=== PATIENT | male | born 1965 | race Hispanic/Latino ===

== ENCOUNTER 2018-05-11 15:48 | Emergency (ER) | payer SELFPAY ==
[~2018-05-11 15:48] MED LIST: Adacel (T-DAP) 0.5 ML VIAL ONE
[2018-05-11] MEDS ORDERED: TETANUS AND DIPHTHERIA TOX/PF 0.5 ML DISP.SYRIN ONE (15:55)
[2018-05-11] MEDS ORDERED: Lidocaine 1% 20 ML MDV ONE (15:55)
[2018-05-11] MEDS ORDERED: Bacitracin Zinc 1 Packet ONE (16:06)
== END 2018-05-11 16:40 | disposition home or self-care (01) ==
LOC: MADERS 15:48
DX: S61.213A Laceration without foreign body of left middle finger without damage to nail, initial encounter (principal); W45.8XXA Other foreign body or object entering through skin, initial encounter
CPT/HCPCS: 12001; 90471; 90715; J2001

== ENCOUNTER 2018-05-14 07:48 | Emergency (ER) | payer SELFPAY | END 2018-05-14 08:00 | disposition home or self-care (01) | LOC: MADERS 07:48 | DX: S61.213D Laceration without foreign body of left middle finger without damage to nail, subsequent encounter (principal) | CPT/HCPCS: 99282 ==

== ENCOUNTER 2018-05-27 15:07 | Emergency (ER) | payer SELFPAY ==
[2018-05-27] MEDS ORDERED: Triple Antibiotic Oint 1 GM Packet ONE (15:39)
== END 2018-05-27 15:46 | disposition home or self-care (01) ==
LOC: MADERS 15:07
DX: S61.211D Laceration without foreign body of left index finger without damage to nail, subsequent encounter (principal)

== ENCOUNTER 2019-11-20 06:03 | Emergency (ER) | payer SELFPAY ==
[2019-11-20] MEDS ORDERED: Ondansetron PF 4 MG/2 ML Vial ONE (06:44)
[2019-11-20] MEDS ORDERED: Morphine 4 MG/ML VIAL ONE ×2 (06:44→08:17)
[2019-11-20 06:59] LABS: #Basophils 0.1 thou/uL (0.0-0.2); #Eosinphils 0.1 thou/uL (0.0-0.7); #Monocytes 1.2 thou/uL (0.11-0.59); #Neutrophils 13.9 thou/uL (1.40-6.50); %Basophils 0.4 % (0.0-1.0); %Eosinophils 0.3 % (0.0-10.0); %Lymphocytes 11.6 % (21.0-51.0); %Neutrophils 80.6 % (42.0-75.0); Hemoglobin 15.6 g/dL (14.0-18.0); Mean Corpuscular HGB CONC 34.3 g/dL (32.0-36.0); Mean Corpuscular Hemoglobin 31.4 pg (27.0-31.0); Mean Corpuscular Volume 91.7 fL (78.0-98.0); Mean Platelet Volume 8.8 fL (7.4-10.4); Platelet Count 191 thou/uL (130-400); RBC Distribution Width 10.8 % (11.5-14.5); Red Blood Cell (RBC) Count 4.97 mill/uL (4.70-6.10); White Blood Cell (WBC) Count 17.2 thou/uL (4.8-10.8)
[2019-11-20 07:13] LABS: ALT (SGPT) 14 U/L (8-55); AST (SGOT) 20 U/L (5-34); Albumin 4.4 g/dL (3.5-5.0); Alkaline Phosphatase 79 U/L (40-110); Anion Gap 18 mmol/L (10-20); BUN (Urea Nitrogen) 7 mg/dL (8.4-25.7); Bilirubin, Total 1.5 mg/dL (0.2-1.2); Calc. Creatinine Clearance 0 mL/min (70-130); Calcium 9.2 mg/dL (7.8-10.44); Carbon Dioxide 22 mmol/L (22-29); Chloride 98 mmol/L (98-107); Estimated GFR-MDRD Greater than 90; Globulin 2.8 g/dL (2.4-3.5); Glucose 140 mg/dL (70-105); Lipase 11 U/L (8-78); Potassium 3.6 mmol/L (3.5-5.1); Protein, Total 7.2 g/dL (6.0-8.3); Sodium 134 mmol/L (136-145)
[2019-11-20] MEDS ORDERED: Sodium Chloride 0.9% 1,000 ML BAG ONE (07:47)
--- NOTE | 2019-11-20 08:04 | CT ---
CT ABDOMEN AND PELVIS: Date: 11/20/2019 COMPARISON: None. HISTORY: Abdominal pain. TECHNIQUE: Axial CT imaging obtained at 5 mm intervals from lung bases through pubic symphysis with IV contrast. Coronal and sagittal reformatted imaging obtained. FINDINGS: The imaged lung bases are unremarkable. No free intraperitoneal air. The liver, spleen, gallbladder, pancreas, and adrenal glands are grossly unremarkable. Kidneys are un remarkable. There is no evidence for bowel obstruction. There is right lower quadrant inflammatory change at the base of the cecum and adjacent to the append ix. The appendix is thick-walled and fluid-filled. There is an appendicolith present on axial image 4 4 posteriorly measuring 8.0 mm. These findings are consistent with acute appendicitis. A focus of gas is noted near the tip of the appendix on axial image 46 and sagittal image 37 which could be extralu key on the basis of perforated appendicitis or could represent gas within the distal tip of the vicky endix. There is no associated abscess at this time. There is a small sliding-type hiatal hernia. Ther e is mild atherosclerotic calcification of the distal abdominal aorta. No pelvic or retroperitoneal l ymphadenopathy. No acute osseous abnormality. Anterior osteophyte formation is seen involving bilateral sacroiliac joints. IMPRESSION: CT evidence of acute appendicitis. Surgical consultation advised. Results called to Dr. Elizondo at 0750 hours on 11/20/2019. CODE CR.
[2019-11-20] MEDS ORDERED: Iopamidol 370 76% 100 ML VIAL ONE (12:55)
== END 2019-11-20 09:26 | disposition short-term general hospital (02) ==
LOC: MADERS 06:03
DX: K35.32 Acute appendicitis with perforation, localized peritonitis, and gangrene, without abscess (principal); F17.210 Nicotine dependence, cigarettes, uncomplicated
CPT/HCPCS: 74177; 80053; 83690; 85025; 96361; 96374; 96375; J2270; J2405; J7050; Q9967